=== PATIENT | female | born 1995 | race African-American/Black ===

== ENCOUNTER 2018-11-10 16:17 | Emergency (ER) | payer MEDICAID, OTHER ==
[~2018-11-10] VITALS: Ht 157.5 cm; Wt 92.0 kg
[2018-11-10] MEDS ORDERED: IBUPROFEN 600MG TABLET PO STA (17:06)
[2018-11-10 18:25] VITALS: BP 130/59
== END 2018-11-10 18:40 | disposition home or self-care (01) ==
LOC: ER 17:02
DX: S63.591A Other specified sprain of right wrist, initial encounter (principal); Y04.0XXA Assault by unarmed brawl or fight, initial encounter; Y93.89 Activity, other specified; Y92.89 Other specified places as the place of occurrence of the external cause
CPT/HCPCS: 29125; 73110; 81025; 99283

== ENCOUNTER 2019-10-17 15:34 | Observation (INO) | payer MEDICAID ==
[~2019-10-17] VITALS: Ht 157.5 cm; Wt 122.5 kg
[2019-10-17] MEDS ORDERED: LACTATED RINGERS 1,000 ML IV SCH (21:15)
[2019-10-18] MEDS ORDERED: LACTATED RINGERS 1,000 ML IV SCH (21:15)
== END 2019-10-18 09:35 | disposition home or self-care (01) ==
LOC: 8 EST LDRP 15:34 → 8 EST A/PP 10-18 00:16
PROVIDERS: ADMIT Obstetrics & Gynecology; ATTEND Obstetrics & Gynecology
DX: O36.8130 Decreased fetal movements, third trimester, not applicable or unspecified (principal); Z3A.33 33 weeks gestation of pregnancy
CPT/HCPCS: 76805; 76815; 76818; 96360; 96361; 99281; G0378

== ENCOUNTER 2019-10-31 21:50 | Observation (INO) | payer MEDICAID ==
[~2019-10-31] VITALS: Ht 157.5 cm; Wt 128.8 kg
[2019-10-31] MEDS ORDERED: TOPUD PO (22:30)
[2019-10-31] MEDS ORDERED: PREN1TAB78 PO (22:30)
[2019-11-01 00:16] LABS: CLARITY URINE CLEAR (CLEAR); COLOR URINE YELLOW (YELLOW); KETONES URINE NEGATIVE (NEGATIVE); LEUKOCYTE ESTERASE URINE NEGATIVE (NEGATIVE); NITRITE URINE NEGATIVE (NEGATIVE); OCCULT BLOOD URINE NEGATIVE (NEGATIVE); PROTEIN URINE NEGATIVE (NEGATIVE); SPECIFIC GRAVITY URINE 1.011 (1.005-1.030); UROBILINOGEN URINE 0.2 E.U./dL (0.2-1.0)
[2019-11-01 00:17] LABS: BASOPHILS % 0.4 % (0.0-2.0); EOSINOPHILS % 0.5 % (0.0-5.0); HEMATOCRIT. 28.9 % (36.0-48.0); HEMOGLOBIN. 9.5 g/dL (12.0-16.0); LYMPHOCYTES % 25.2 % (20.0-50.0); MEAN CORPUSCULAR HEMOGLOBIN 25.1 pg (28.0-32.0); MEAN CORPUSCULAR VOLUME 76.3 fL (81.0-99.0); MEAN PLATELET VOLUME 8.4 fl (7.4-10.4); MONOCYTES % 9.1 % (2.0-8.0); NEUTROPHILS % 64.8 % (40.0-76.0); PLATELET 318 x1000/uL (130-400); RED BLOOD CELL COUNT 3.79 mill/uL (4.2-5.4); RED CELL DISTRIBUTION WIDTH 14.4 % (11.6-14.6)
[2019-11-01 00:23] LABS: CHLORIDE 108 mEq/L (98-107)
[2019-11-01 01:02] LABS: D-DIMER 1.8 mg/L FEU (<0.50); INR 0.9; PARTIAL THROMBOPLASTIN TIME 25.9 sec (23.4-31.0); PROTHROMBIN TIME 9.8 sec (9.6-11.0)
== END 2019-11-01 02:13 | disposition home or self-care (01) ==
LOC: 8 EST LDRP 21:50
PROVIDERS: ADMIT Obstetrics & Gynecology; ATTEND Obstetrics & Gynecology
DX: O99.89 Other specified diseases and conditions complicating pregnancy, childbirth and the puerperium (principal); R51 Headache; O13.3 Gestational [pregnancy-induced] hypertension without significant proteinuria, third trimester; Z3A.35 35 weeks gestation of pregnancy
CPT/HCPCS: 36415; 59025; 76805; 76818; 80053; 81003; 84550; 85025; 85379; 85384; 85610; 85730; G0378; 99281

== ENCOUNTER 2019-11-03 22:06 | Observation (INO) | payer MEDICAID ==
[~2019-11-03] VITALS: Ht 157.5 cm; Wt 127.0 kg
[~2019-11-03 22:06] MED LIST: PREN1TAB78 PO; TOPUD PO
== END 2019-11-04 00:30 | disposition home or self-care (01) ==
LOC: 8 EST LDRP 22:06
PROVIDERS: ADMIT Obstetrics & Gynecology; ATTEND Obstetrics & Gynecology
DX: Z34.93 Encounter for supervision of normal pregnancy, unspecified, third trimester (principal); Z3A.35 35 weeks gestation of pregnancy
CPT/HCPCS: 59025; 76805; 76818; G0378; 99281

== ENCOUNTER 2019-11-13 18:40 | Inpatient (IN) | payer MEDICAID ==
[~2019-11-13] VITALS: Ht 157.5 cm; Wt 127.0 kg
[2019-11-13] MEDS ORDERED: DEXT 5%/LR + PITOCIN 20UNITS/L 1,000 ML IV SCH (22:06)
[2019-11-13] MEDS ORDERED: MISOPROSTOL 100MCG TABLET VG PRN (22:15)
[2019-11-13] MEDS ORDERED: CARBOPROST TROMETHAMINE 250 MCG/ML AMPUL IM PRN (22:15)
[2019-11-13] MEDS ORDERED: LIDOCAINE HCL 1% 20ML VIAL (Pyxis) INJ INFIL SCH ×2 (22:15→22:30)
[2019-11-13] MEDS ORDERED: MISOPROSTOL 100MCG TABLET VG SCH (22:15)
[2019-11-13] MEDS ORDERED: NALOXONE HCL 0.4 MG/ML 1ML VIAL IM PRN (22:15)
[2019-11-13] MEDS ORDERED: BUTORPHANOL TARTRATE 2 MG/ML VIAL IV PRN ×2 (22:15→22:30)
[2019-11-13] MEDS ORDERED: MAGNESIUM 20 G PREMIX (L & D) 500 ML IV SCH (22:15)
[2019-11-13] MEDS ORDERED: LACTATED RINGERS 1,000 ML IV SCH (22:26)
[2019-11-13] MEDS ORDERED: PENICILLIN G POTASSIUM 2.5 MMU in DEXTROSE 5% WATER 50 ML IV SCH (22:30)
[2019-11-13] MEDS ORDERED: PENICILLIN G POTASSIUM 5 MMU in DEXT 5% WATER 100 ML IV SCH ×2 (22:30→23:00)
[2019-11-13] MEDS: LACTATED RINGERS 1,000 ML IV SCH (22:35)
[2019-11-13] MEDS ORDERED: HYDRALAZINE 20MG/ML VIAL IV PRN (22:45)
[2019-11-13] MEDS ORDERED: LABETALOL HCL 5MG/ML VIAL 20ML IV PRN ×3 (22:45)
[2019-11-13] MEDS ORDERED: MAGNESIUM 4 G PREMIX 100 ML IV ONE (23:00)
[2019-11-13] MEDS: MISOPROSTOL 100MCG TABLET VG PRN (23:00)
[2019-11-13] MEDS ORDERED: RHO(D) IMMUNE GLOBULIN 300 MCG/SYR IM NR (23:00)
[2019-11-13] MEDS: MAGNESIUM 20 G PREMIX (L & D) 500 ML IV SCH (23:18)
[2019-11-13 23:37] LABS: INR 0.9; PARTIAL THROMBOPLASTIN TIME 24.8 sec (23.4-31.0); PROTHROMBIN TIME 9.8 sec (9.6-11.0)
[2019-11-13 23:43] LABS: BASOPHILS % 0.2 % (0.0-2.0); EOSINOPHILS % 0.3 % (0.0-5.0); HEMATOCRIT. 28.7 % (36.0-48.0); HEMOGLOBIN. 9.4 g/dL (12.0-16.0); LYMPHOCYTES % 27.3 % (20.0-50.0); MEAN CORPUSCULAR HEMOGLOBIN 24.7 pg (28.0-32.0); MEAN CORPUSCULAR VOLUME 75.7 fL (81.0-99.0); MEAN PLATELET VOLUME 8.6 fl (7.4-10.4); MONOCYTES % 10.8 % (2.0-8.0); NEUTROPHILS % 61.4 % (40.0-76.0); PLATELET 318 x1000/uL (130-400); RED BLOOD CELL COUNT 3.79 mill/uL (4.2-5.4)
[2019-11-14 00:01] LABS: HEPATITIS B SURFACE ANTIGEN NEGATIVE
[2019-11-14 02:21] LABS: CLARITY URINE CLOUDY (CLEAR); COLOR URINE YELLOW (YELLOW); KETONES URINE 1+ (NEGATIVE); LEUKOCYTE ESTERASE URINE NEGATIVE (NEGATIVE); NITRITE URINE NEGATIVE (NEGATIVE); OCCULT BLOOD URINE NEGATIVE (NEGATIVE); PROTEIN URINE NEGATIVE (NEGATIVE); SPECIFIC GRAVITY URINE 1.016 (1.005-1.030); UROBILINOGEN URINE 0.2 E.U./dL (0.2-1.0)
[2019-11-14] MEDS: MISOPROSTOL 100MCG TABLET VG PRN ×4 (03:00→15:10)
[2019-11-14] MEDS: PENICILLIN G POTASSIUM 2.5 MMU in DEXTROSE 5% WATER 50 ML IV SCH ×5 (03:45→20:33)
[2019-11-14] MEDS: MAGNESIUM 20 G PREMIX (L & D) 500 ML IV SCH (07:39)
[2019-11-14] MEDS: LACTATED RINGERS 1,000 ML IV SCH ×2 (10:11→20:36)
[2019-11-14 10:12] LABS: *AMPHETAMINES SCREEN URINE NEGATIVE (NEGATIVE); *BARBITURATES SCREEN URINE NEGATIVE (NEGATIVE); *BENZODIAZEPINES SCREEN URINE NEGATIVE (NEGATIVE); *COCAINE SCREEN URINE NEGATIVE (NEGATIVE); CANNABINOID URINE SCREEN NEGATIVE (NEGATIVE); PHENCYCLIDINE URINE SCREEN NEGATIVE (NEGATIVE)
[2019-11-14 10:13] LABS: METHADONE URINE SCREEN NEGATIVE (NEGATIVE); OPIATES URINE SCREEN NEGATIVE (NEGATIVE)
[2019-11-14] MEDS ORDERED: ACETAMINOPHEN 500MG TABLET PO SCH (15:30)
[2019-11-15] MEDS: PENICILLIN G POTASSIUM 2.5 MMU in DEXTROSE 5% WATER 50 ML IV SCH ×4 (01:01→15:58)
[2019-11-15] MEDS: LACTATED RINGERS 1,000 ML IV SCH (07:06)
[2019-11-15] MEDS ORDERED: ROPIVACAINE HCL/PF EPIDURAL 200 ML EPI SCH (07:45)
[2019-11-15] MEDS ORDERED: BUPIVACAINE HCL/PF 0.25% (2.5MG/ML) 10ML ONE (14:47)
[2019-11-15] MEDS: DEXT 5%/LR + PITOCIN 20UNITS/L 1,000 ML IV SCH (18:46)
[2019-11-15] MEDS ORDERED: HEMORRHOIDAL SUPP PR PRN (19:00)
[2019-11-15] MEDS ORDERED: GLYCERIN/WITCH HAZEL LEAF MEDICATED PAD TOP PRN (19:00)
[2019-11-15] MEDS ORDERED: BISACODYL 10MG SUPP PR PRN (19:00)
[2019-11-15] MEDS ORDERED: DIPHENHYDRAMINE 25MG CAPSULE PO PRN (19:00)
[2019-11-15] MEDS ORDERED: OXYCODONE HCL/ACETAMINOPHEN 5/325MG TABLET PO PRN (19:00)
[2019-11-15] MEDS ORDERED: IBUPROFEN 400MG TABLET PO PRN (19:00)
[2019-11-15] MEDS: IBUPROFEN 800MG TABLET PO PRN (19:27)
[2019-11-15] MEDS: MAGNESIUM 20 G PREMIX (L & D) 500 ML IV SCH (20:19)
[2019-11-15 21:00] VITALS: BP 154/74
[2019-11-15] MEDS ORDERED: DOCUSATE SODIUM 100MG CAPSULE PO SCH (21:00)
[2019-11-15] MEDS: LABETALOL HCL 200MG TABLET PO SCH (21:11)
[2019-11-15 21:16] VITALS: BP 160/73
[2019-11-15 21:30] VITALS: BP 151/68
[2019-11-15 21:46] VITALS: BP 166/79
[2019-11-16] VITALS (12 sets, daily range): BP systolic 108–130; BP diastolic 52–67
[2019-11-16] MEDS: IBUPROFEN 800MG TABLET PO PRN ×2 (00:48→14:34)
[2019-11-16] MEDS: LABETALOL HCL 200MG TABLET PO SCH ×3 (05:31→21:37)
[2019-11-16] MEDS: MAGNESIUM 20 G PREMIX (L & D) 500 ML IV SCH (06:10)
[2019-11-16] MEDS: DEXT 5%/LR + PITOCIN 20UNITS/L 1,000 ML IV SCH (07:29)
[2019-11-16] MEDS ORDERED: MAGNESIUM 20 G PREMIX (L & D) 500 ML IV SCH (07:30)
[2019-11-16 08:35] LABS: HEMATOCRIT. 27.7 % (36.0-48.0); MEAN CORPUSCULAR HEMOGLOBIN 24.5 pg (28.0-32.0); MEAN CORPUSCULAR VOLUME 75.4 fL (81.0-99.0); MEAN PLATELET VOLUME 8.3 fl (7.4-10.4); PLATELET 306 x1000/uL (130-400); RED BLOOD CELL COUNT 3.67 mill/uL (4.2-5.4); RED CELL DISTRIBUTION WIDTH 14.8 % (11.6-14.6)
[2019-11-16] MEDS: PRENATAL VIT/FE FUMARATE/FA TABLET PO SCH (08:47)
[2019-11-16] MEDS: FERROUS SULFATE 325MG TABLET PO SCH ×3 (08:47→18:32)
[2019-11-16] MEDS: SIMETHICONE 80MG TABLET CHEW PO SCH ×4 (08:51→21:38)
[2019-11-16 12:39] LABS: PLATELET ESTIMATE NORMAL
[2019-11-17 04:00] VITALS: BP 131/78
[2019-11-17] MEDS: LABETALOL HCL 200MG TABLET PO SCH (05:01)
[2019-11-17 07:28] VITALS: BP 126/66
[2019-11-17] MEDS: SIMETHICONE 80MG TABLET CHEW PO SCH (08:00)
[2019-11-17 08:41] LABS: BASOPHILS % 0.5 % (0.0-2.0); EOSINOPHILS % 1.2 % (0.0-5.0); HEMATOCRIT. 26.9 % (36.0-48.0); HEMOGLOBIN. 8.8 g/dL (12.0-16.0); LYMPHOCYTES % 26.3 % (20.0-50.0); MEAN CORPUSCULAR HEMOGLOBIN 24.9 pg (28.0-32.0); MEAN CORPUSCULAR VOLUME 76.2 fL (81.0-99.0); MEAN PLATELET VOLUME 8.4 fl (7.4-10.4); MONOCYTES % 8.6 % (2.0-8.0); NEUTROPHILS % 63.4 % (40.0-76.0); PLATELET 312 x1000/uL (130-400); RED BLOOD CELL COUNT 3.53 mill/uL (4.2-5.4); RED CELL DISTRIBUTION WIDTH 15.2 % (11.6-14.6)
[2019-11-17] MEDS: PRENATAL VIT/FE FUMARATE/FA TABLET PO SCH (08:42)
[2019-11-17] MEDS: FERROUS SULFATE 325MG TABLET PO SCH (08:42)
[2019-11-17] MEDS ORDERED: LABE200T28 PO (12:35)
[2019-11-17] MEDS ORDERED: IBUP-2030 PO (12:35)
== END 2019-11-17 13:10 | disposition home or self-care (01) | DRG 560 ==
LOC: 8 EST LDRP 18:40 → OBSVTOIN 18:40 → 8EST 11-16 07:45
PROVIDERS: ADMIT Obstetrics & Gynecology; ATTEND Obstetrics & Gynecology
PROC: 10E0XZZ Delivery of Products of Conception, External Approach (ICD-10-PCS; principal; 2019-11-14)
PROC: 3E0R3BZ Introduction of Anesthetic Agent into Spinal Canal, Percutaneous Approach (ICD-10-PCS; 2019-11-14)
DX: O13.4 Gestational [pregnancy-induced] hypertension without significant proteinuria, complicating childbirth (principal); D64.9 Anemia, unspecified; D72.825 Bandemia; O41.03X0 Oligohydramnios, third trimester, not applicable or unspecified; O99.02 Anemia complicating childbirth; O99.12 Other diseases of the blood and blood-forming organs and certain disorders involving the immune mechanism complicating childbirth; Z37.0 Single live birth; Z3A.39 39 weeks gestation of pregnancy
CPT/HCPCS: 36415; 76805; 76818; 80305; 81003; 83735; 85025; 85384; 86592; 86703; 86762; 86850; 86900; 87340; 99281; J0595; J2540; J2590; J2795; J3475; J3490; J7060

== ENCOUNTER 2020-08-23 02:34 | Observation (INO) | payer MEDICAID ==
[~2020-08-23] VITALS: Ht 157.5 cm; Wt 113.4 kg
[~2020-08-23 02:34] MED LIST changes: +IBUP-2030 PO; +LABE200T9 PO
[2020-08-23] MEDS ORDERED: ASPI-1497 PO (03:10)
[2020-08-23] MEDS ORDERED: ACETAMINOPHEN 325MG TABLET PO ONE (03:45)
[2020-08-23] MEDS ORDERED: LACTATED RINGERS 1,000 ML IV SCH (03:45)
[2020-08-23] MEDS ORDERED: CEFAZOLIN 2,000 MG in DEXT 5% WATER 100 ML IV SCH (04:00)
[2020-08-23 04:34] LABS: CLARITY URINE CLOUDY (CLEAR); COLOR URINE YELLOW (YELLOW); KETONES URINE NEGATIVE (NEGATIVE); LEUKOCYTE ESTERASE URINE 1+ (NEGATIVE); NITRITE URINE NEGATIVE (NEGATIVE); OCCULT BLOOD URINE TRACE (NEGATIVE); PROTEIN URINE NEGATIVE (NEGATIVE); SPECIFIC GRAVITY URINE 1.012 (1.005-1.030); UROBILINOGEN URINE 0.2 E.U./dL (0.2-1.0)
== END 2020-08-23 13:33 | disposition home or self-care (01) ==
LOC: 8 EST LDRP 02:34
PROVIDERS: ADMIT Obstetrics & Gynecology; ATTEND Obstetrics & Gynecology
DX: O42.913 Preterm premature rupture of membranes, unspecified as to length of time between rupture and onset of labor, third trimester (principal); Z3A.29 29 weeks gestation of pregnancy
CPT/HCPCS: 59025; 76805; 76818; 81003; 96361; 96365; G0378; J0690; J7060; 96360; 99281; J7120